=== PATIENT | male | born 1970 | race Caucasian/White ===

== ENCOUNTER 2024-10-14 11:57 | Outpatient (CLI) | payer MEDICAID | END 2024-10-14 23:59 | disposition home or self-care (01) | LOC: RAD 11:57 | PROVIDERS: ATTEND Nurse Practitioner | DX: M25.561 Pain in right knee (principal); G89.29 Other chronic pain | CPT/HCPCS: 72100; 73564 ==

== ENCOUNTER 2024-10-17 06:09 | Outpatient (CLI) | payer MEDICAID | END 2024-10-17 23:59 | disposition home or self-care (01) | LOC: MRI02 06:09 | PROVIDERS: ATTEND Nurse Practitioner | DX: S83.241A Other tear of medial meniscus, current injury, right knee, initial encounter (principal); M25.561 Pain in right knee; X58.XXXA Exposure to other specified factors, initial encounter; Y93.89 Activity, other specified; Y92.89 Other specified places as the place of occurrence of the external cause; Y99.8 Other external cause status | CPT/HCPCS: 73721 ==